=== PATIENT | female | born 1985 | race Caucasian/White ===

== ENCOUNTER 2017-04-02 17:27 | Emergency (ER) | payer OTHER ==
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
== END 2017-04-02 18:38 | disposition home or self-care (01) ==
LOC: ER 17:27
DX: R51 Headache (principal); V44.5XXA Car driver injured in collision with heavy transport vehicle or bus in traffic accident, initial encounter; Y92.414 Local residential or business street as the place of occurrence of the external cause; Y99.0 Civilian activity done for income or pay
CPT/HCPCS: 99281